=== PATIENT | female | born 2000 ===

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

== ENCOUNTER 2020-05-13 07:37 | Inpatient (IN) ==
[2020-05-13] MEDS ORDERED: valACYclovir 500 MG TABLET PO SCH (09:30)
[2020-05-13] MEDS ORDERED: BUTORPHANOL 2 MG/ML VIAL IV PRN (10:54)
[2020-05-13] MEDS ORDERED: ONDANSETRON 4 MG/2 ML VIAL IV PRN (10:54)
[2020-05-13] MEDS ORDERED: MEPERIDINE 50 MG/1 ML VIAL IV PRN (10:54)
[2020-05-13] MEDS ORDERED: OXYTOCIN/LR 20 UNIT/1,000 ML BAG IV SCH (11:00)
[2020-05-13 11:20] LABS: Basophils % 0.2 % (0.0-0.8); Eosinophils # 0.1 10*3/uL (0.0-0.87); Eosinophils % 1.1 % (0.00-10.9); Hematocrit 25.9 VOL% (35.7-47.0); Hemoglobin 7.7 GM/DL (12.0-16.0); Immature Granulocytes % 0.6 %; Immature Granulocytes Absolute 0.05 #; Lymphocytes # 2.4 10*3/uL (1.4-4.0); Lymphocytes % 28.8 % (21.3-54.2); Mean Corpuscular HGB Conc 29.7 GM/DL (32-36); Mean Corpuscular Volume 69.6 FL (87-102); Mean Platelet Volume 11.8 FL (9.6-12.0); Monocytes % 4.5 % (1.7-12.7); NRBC # 0.07 10*3/uL; Neutrophils % 64.8 % (38.7-73.9); Platelet Count 248 T/CUMM (130-400); Red Blood Count 3.72 MC/CUMM (3.8-5.5); Red Cell Distribution Width 16.3 % (9.3-17.3); White Blood Count 8.2 T/CUMM (4-12)
[2020-05-13] MEDS ORDERED: AMPICILLIN INJ 2,000 MG in SODIUM CHLORIDE 0.9% 100 ML IV ONE (11:20)
[2020-05-13] MEDS: LACTATED RINGERS 1,000 ML IV SCH ×2 (11:50→13:11)
[2020-05-13] MEDS ORDERED: ePHEDrine 50 MG/ML VIAL IV PRN (12:16)
[2020-05-13] MEDS ORDERED: hydrOXYzine HCL 25 MG/1 ML VIAL IM PRN (12:16)
[2020-05-13] MEDS ORDERED: PROMETHAZINE 25 MG/1 ML VIAL IM ONE (12:16)
[2020-05-13] MEDS ORDERED: diphenhydrAMINE 50 MG/1 ML VIAL IV PRN ×2 (12:16)
[2020-05-13] MEDS ORDERED: NALOXONE 0.4 MG/ML VIAL IV PRN (12:16)
[2020-05-13] MEDS ORDERED: ONDANSETRON 4 MG/2 ML VIAL IV ONE (12:16)
[2020-05-13] MEDS ORDERED: FAMOTIDINE 20 MG/2 ML VIAL IV ONE (12:18)
[2020-05-13] MEDS ORDERED: LACTATED RINGERS 1,000 ML IV ONE (12:18)
[2020-05-13] MEDS ORDERED: CITRIC ACID/SODIUM CITRATE 30 ML UDCUP PO ONE (12:18)
[2020-05-13] MEDS ORDERED: fentaNYL 2 MCG/ROPIV 0.2% EPID 100 ML EPIDURAL SCH (12:30)
[2020-05-13 15:02] LABS: Bilirubin,Urine Negative (Negative); Blood, Urine Negative (Negative); Glucose,Urine (UA) Negative (Negative); Ketones,Urine 5 mg/dL (Negative); Mucus,Urine Occasional /LPF (Occasional); Nitrite,Urine Negative (Negative); Protein,Urine Negative; RBC,Urine 2 /HPF (0-4); Squamous Epithelial Cell,Urine Occasional /HPF (0-10); Urine Appearance CLEAR (Clear); Urine Color Yellow (Yellow); Urine Specific Gravity 1.014 (1.001-1.035); Urine Urobilinogen < 2.0 EU/DL (0.2-1.0); WBC,Urine 1 /HPF (0-6)
[2020-05-13] MEDS ORDERED: AMPICILLIN INJ 1,000 MG in SODIUM CHLORIDE 0.9% 100 ML IV SCH (15:30)
[2020-05-13] MEDS ORDERED: TRANEXAMIC ACID 1,000 MG/10 ML VIAL ONE (16:44)
[2020-05-13] MEDS ORDERED: miSOPROStoL 200 MCG TABLET ONE (16:44)
[2020-05-13] MEDS ORDERED: OXYTOCIN/LR 0 UNIT/0 ML BAG IV ONE (16:44)
[2020-05-13] MEDS ORDERED: METHYLERGONOVINE 0.2 MG/1 ML AMP ONE (16:45)
[2020-05-13] MEDS ORDERED: CARBOPROST TROMETHAMINE 250 MCG/ML AMP IM ONE (16:45)
[2020-05-13 17:54] LABS: Cord Venous Blood HCO3 23.4 MMOL/L; Cord Venous Blood PCO2 38.8 MMHG; Cord Venous Blood PO2 29.6
[2020-05-13] MEDS ORDERED: IBUPROFEN 800 MG TABLET PO PRN (22:26)
[2020-05-13] MEDS ORDERED: BENZOCAINE 20%/MENTHOL 0.5% SPRAY 56 GM CAN TOP PRN (22:26)
[2020-05-13] MEDS ORDERED: WITCH HAZEL PADS 100/JAR TOP PRN (22:26)
[2020-05-13] MEDS ORDERED: OXYTOCIN/LR 20 UNIT/1,000 ML BAG IV ONE (22:26)
[2020-05-13] MEDS ORDERED: HYDROCORTISONE 2.5% RECTAL CREAM 30 GM TUBE TOP PRN (22:26)
[2020-05-13] MEDS ORDERED: BISACODYL 10 MG SUPP RECTAL PRN (22:26)
[2020-05-13] MEDS ORDERED: oxyCODONE/ACETAMINOPHEN 5-325 MG TABLET PO PRN ×2 (22:26)
[2020-05-13] MEDS ORDERED: DIPH/TET/ACEL PERT BOOSTER VACCINE 0.5 ML VIAL IM ONE (22:26)
[2020-05-13] MEDS ORDERED: RHO(D) IMMUNE GLOBULIN 300 MCG SYRINGE IM ONE (22:26)
[2020-05-13] MEDS ORDERED: MEASLES/MUMPS/RUBELLA VACCINE 0.5 ML VIAL SUBCUT ONE (22:26)
[2020-05-13] MEDS ORDERED: ACETAMINOPHEN 325 MG TABLET PO PRN (22:26)
[2020-05-13] MEDS ORDERED: LANOLIN 50% CREAM 0.3 OZ TUBE TOP PRN (22:26)
[2020-05-13] MEDS ORDERED: ACETAMINOPHEN/CODEINE 300-30 MG TABLET PO PRN (22:27)
[2020-05-13] MEDS: ACETAMINOPHEN/CODEINE 300-30 MG TABLET PO PRN (22:37)
[2020-05-13] MEDS: DOCUSATE SODIUM 100 MG CAPSULE PO SCH (22:38)
[2020-05-14] MEDS: ACETAMINOPHEN/CODEINE 300-30 MG TABLET PO PRN ×3 (05:25→23:31)
[2020-05-14 07:15] LABS: Basophils % 0.2 % (0.0-0.8); Eosinophils # 0.2 10*3/uL (0.0-0.87); Eosinophils % 1.2 % (0.00-10.9); Hematocrit 21.6 VOL% (35.7-47.0); Hemoglobin 6.6 GM/DL (12.0-16.0); Immature Granulocytes % 0.6 %; Immature Granulocytes Absolute 0.07 #; Lymphocytes # 3.3 10*3/uL (1.4-4.0); Mean Corpuscular HGB Conc 30.6 GM/DL (32-36); Mean Corpuscular Volume 68.1 FL (87-102); Mean Platelet Volume 10.9 FL (9.6-12.0); Monocytes % 5.4 % (1.7-12.7); NRBC # 0.05 10*3/uL; Neutrophils % 66.6 % (38.7-73.9); Platelet Count 195 T/CUMM (130-400); Red Blood Count 3.17 MC/CUMM (3.8-5.5); Red Cell Distribution Width 16.1 % (9.3-17.3); White Blood Count 12.7 T/CUMM (4-12)
[2020-05-14] MEDS ORDERED: SODIUM CHLORIDE 0.9% 1,000 ML IV PRN (07:23)
[2020-05-14] MEDS: DOCUSATE SODIUM 100 MG CAPSULE PO SCH ×2 (08:33→20:50)
[2020-05-14] MEDS: FERROUS SULFATE 325 MG TABLET PO SCH ×3 (08:33→20:50)
[2020-05-14] MEDS: valACYclovir 500 MG TABLET PO SCH (08:34)
[2020-05-14] MEDS ORDERED: FERROUS SULFATE 325 MG TABLET PO SCH (09:00)
[2020-05-14 16:05] LABS: Hematocrit 31.2 VOL% (35.7-47.0); Hemoglobin 9.7 GM/DL (12.0-16.0)
[2020-05-15] MEDS ORDERED: DIPH/TET/ACEL PERT BOOSTER VACCINE 0.5 ML VIAL IM ONE (08:59)
[2020-05-15] MEDS ORDERED: INFLUENZA VIRUS VACCINE 0.5 ML SYRINGE IM ONE (08:59)
[2020-05-15] MEDS: DOCUSATE SODIUM 100 MG CAPSULE PO SCH (09:45)
[2020-05-15] MEDS: valACYclovir 500 MG TABLET PO SCH (09:45)
[2020-05-15] MEDS: FERROUS SULFATE 325 MG TABLET PO SCH (09:45)
[2020-05-15 10:02] VITALS: BP 113/84
== END 2020-05-15 14:05 | disposition home or self-care (01) | DRG 807 ==
LOC: N.LDOUT 07:37 → N.LD 07:40 → N.OB 22:14
PROVIDERS: ADMIT Obstetrics & Gynecology; ATTEND Obstetrics & Gynecology

== ENCOUNTER 2022-03-16 00:44 | Inpatient (IN) ==
[2022-03-16] MEDS ORDERED: MEPERIDINE 50 MG/1 ML VIAL IV PRN (00:51)
[2022-03-16] MEDS ORDERED: miSOPROStoL 200 MCG TABLET RECTAL PRN (00:51)
[2022-03-16] MEDS ORDERED: BUTORPHANOL 2 MG/ML VIAL IV PRN (00:51)
[2022-03-16] MEDS ORDERED: OXYTOCIN/LR 20 UNIT/1,000 ML BAG IV ONE ×3 (00:51→04:41)
[2022-03-16] MEDS ORDERED: ONDANSETRON 4 MG/2 ML VIAL IV PRN ×2 (00:51→04:41)
[2022-03-16] MEDS ORDERED: CARBOPROST TROMETHAMINE 250 MCG/ML AMP IM PRN (00:51)
[2022-03-16] MEDS ORDERED: METHYLERGONOVINE 0.2 MG/1 ML AMP IM PRN (00:51)
[2022-03-16] MEDS ORDERED: TRANEXAMIC ACID 1,000 MG in SODIUM CHLORIDE 0.9% 100 ML IV PRN (00:51)
[2022-03-16] MEDS ORDERED: LACTATED RINGERS 1,000 ML IV SCH ×3 (01:00→02:00)
[2022-03-16 01:18] LABS: Basophils % 0.2 % (0.0-0.8); Eosinophils # 0.1 10*3/uL (0.0-0.87); Eosinophils % 1.6 % (0.00-10.9); Hematocrit 28.3 VOL% (35.7-47.0); Hemoglobin 8.4 GM/DL (12.0-16.0); Immature Granulocytes % 0.2 %; Immature Granulocytes Absolute 0.02 #; Lymphocytes # 3.1 10*3/uL (1.4-4.0); Lymphocytes % 35.5 % (21.3-54.2); Mean Corpuscular HGB Conc 29.7 GM/DL (32-36); Mean Platelet Volume 11.4 FL (9.6-12.0); Monocytes # 0.4 10*3/uL (0.11-0.8); NRBC # 0.07 10*3/uL; Neutrophils % 58.5 % (38.7-73.9); Platelet Count 223 T/CUMM (130-400); Red Blood Count 4.04 MC/CUMM (3.8-5.5); Red Cell Distribution Width 18.1 % (9.3-17.3); White Blood Count 8.8 T/CUMM (4-12)
[2022-03-16] MEDS ORDERED: CITRIC ACID/SODIUM CITRATE 30 ML UDCUP PO ONE (01:27)
[2022-03-16] MEDS ORDERED: diphenhydrAMINE 50 MG/1 ML VIAL IV PRN ×2 (01:27)
[2022-03-16] MEDS ORDERED: LACTATED RINGERS 250 ML IV PRN (01:27)
[2022-03-16] MEDS ORDERED: NALOXONE 0.4 MG/ML VIAL IV PRN (01:27)
[2022-03-16] MEDS ORDERED: hydrOXYzine HCL 25 MG/1 ML VIAL IM PRN (01:27)
[2022-03-16] MEDS ORDERED: LACTATED RINGERS 500 ML IV ONE (01:27)
[2022-03-16] MEDS ORDERED: LACTATED RINGERS 1,000 ML IV ONE (01:27)
[2022-03-16] MEDS ORDERED: ePHEDrine 50 MG/ML VIAL IV PRN (01:27)
[2022-03-16] MEDS ORDERED: FAMOTIDINE 20 MG/2 ML VIAL IV ONE (01:27)
[2022-03-16] MEDS ORDERED: fentaNYL 2 MCG/ROPIV 0.2% EPID 100 ML EPIDURAL SCH (01:30)
[2022-03-16] MEDS ORDERED: PROMETHAZINE 25 MG/1 ML VIAL IM ONE (02:00)
[2022-03-16] MEDS ORDERED: ONDANSETRON 4 MG/2 ML VIAL IV ONE (02:00)
[2022-03-16] MEDS ORDERED: AMPICILLIN INJ 2,000 MG in SODIUM CHLORIDE 0.9% 100 ML IV ONE (03:00)
[2022-03-16 03:23] LABS: Bilirubin,Urine Negative (Negative); Blood, Urine Negative (Negative); Glucose,Urine (UA) Negative (Negative); Ketones,Urine Negative (Negative); Nitrite,Urine Negative (Negative); Protein,Urine Negative (Negative); Urine Appearance Clear (Clear); Urine Color Yellow (Yellow); Urine Specific Gravity 1.025 (1.001-1.035); Urine Urobilinogen 0.2 eU/dL (<2.0); Urine pH 6.5 (4.5-8.0)
[2022-03-16 03:25] LABS: Mucus,Urine Occasional /LPF (Occasional); RBC,Urine 1 /HPF (0-4); Squamous Epithelial Cell,Urine Occasional /HPF (0-10)
[2022-03-16] MEDS ORDERED: SODIUM CHLORIDE 0.9% 0 ML IV ONE (03:57)
[2022-03-16] MEDS ORDERED: METHYLERGONOVINE 0.2 MG/1 ML AMP ONE (03:57)
[2022-03-16] MEDS ORDERED: TRANEXAMIC ACID 1,000 MG/10 ML VIAL ONE (03:57)
[2022-03-16] MEDS ORDERED: miSOPROStoL 200 MCG TABLET ONE (03:57)
[2022-03-16] MEDS ORDERED: CARBOPROST TROMETHAMINE 250 MCG/ML AMP IM ONE (03:58)
[2022-03-16] MEDS ORDERED: OXYTOCIN/LR 30 UNIT/1,000 ML BAG IV STA (04:38)
[2022-03-16] MEDS ORDERED: IBUPROFEN 800 MG TABLET PO PRN (04:41)
[2022-03-16] MEDS ORDERED: ACETAMINOPHEN 325 MG TABLET PO PRN (04:41)
[2022-03-16] MEDS ORDERED: HYDROCORTISONE 2.5% RECTAL CREAM 30 GM TUBE TOP PRN (04:41)
[2022-03-16] MEDS ORDERED: oxyCODONE/ACETAMINOPHEN 5-325 MG TABLET PO PRN (04:41)
[2022-03-16] MEDS ORDERED: LANOLIN 50% CREAM 0.3 OZ TUBE TOP PRN (04:41)
[2022-03-16] MEDS ORDERED: BENZOCAINE 20%/MENTHOL 0.5% SPRAY 56 GM CAN TOP PRN (04:41)
[2022-03-16] MEDS ORDERED: WITCH HAZEL PADS 100/JAR TOP PRN (04:41)
[2022-03-16] MEDS ORDERED: BISACODYL 10 MG SUPP RECTAL PRN (04:41)
[2022-03-16 04:50] LABS: Cord Venous Blood PCO2 42.5 MMHG; Cord Venous Blood PO2 32.6
[2022-03-16] MEDS ORDERED: DIPH/TET/ACEL PERT BOOSTER VACCINE 0.5 ML VIAL IM ONE (05:00)
[2022-03-16] MEDS ORDERED: RHO(D) IMMUNE GLOBULIN 300 MCG SYRINGE IM ONE (05:00)
[2022-03-16] MEDS ORDERED: MEASLES/MUMPS/RUBELLA VACCINE 0.5 ML VIAL SUBCUT ONE (05:00)
[2022-03-16] MEDS ORDERED: AMPICILLIN INJ 1,000 MG in SODIUM CHLORIDE 0.9% 100 ML IV SCH (07:00)
[2022-03-16] MEDS: oxyCODONE/ACETAMINOPHEN 5-325 MG TABLET PO PRN ×2 (08:42→18:30)
[2022-03-16] MEDS: DOCUSATE SODIUM 100 MG CAPSULE PO SCH ×2 (09:01→20:33)
[2022-03-17 06:05] LABS: Basophils % 0.3 % (0.0-0.8); Eosinophils # 0.3 10*3/uL (0.0-0.87); Eosinophils % 2.8 % (0.00-10.9); Hematocrit 22.6 VOL% (35.7-47.0); Hemoglobin 6.8 GM/DL (12.0-16.0); Immature Granulocytes % 0.6 %; Immature Granulocytes Absolute 0.06 #; Lymphocytes # 4.1 10*3/uL (1.4-4.0); Lymphocytes % 39.2 % (21.3-54.2); Mean Corpuscular HGB Conc 30.1 GM/DL (32-36); Mean Corpuscular Volume 69.3 FL (87-102); Mean Platelet Volume 12.2 FL (9.6-12.0); Monocytes # 0.4 10*3/uL (0.11-0.8); Monocytes % 3.9 % (1.7-12.7); NRBC # 0.02 10*3/uL; Neutrophils % 53.2 % (38.7-73.9); Platelet Count 194 T/CUMM (130-400); Red Blood Count 3.26 MC/CUMM (3.8-5.5); Red Cell Distribution Width 17.7 % (9.3-17.3); White Blood Count 10.5 T/CUMM (4-12)
[2022-03-17] MEDS ORDERED: SODIUM CHLORIDE 0.9% 1,000 ML IV PRN ×2 (06:50→06:59)
[2022-03-17 07:15] LABS: Anisocytosis 1+; Platelet Estimate Normal
[2022-03-17 07:16] LABS: Tear Drop Cells Few
[2022-03-17] MEDS: DOCUSATE SODIUM 100 MG CAPSULE PO SCH ×2 (09:15→21:30)
[2022-03-17 19:40] LABS: Basophils % 0.2 % (0.0-0.8); Eosinophils # 0.3 10*3/uL (0.0-0.87); Eosinophils % 3.1 % (0.00-10.9); Hematocrit 32.3 VOL% (35.7-47.0); Immature Granulocytes % 0.8 %; Immature Granulocytes Absolute 0.08 #; Lymphocytes # 3.3 10*3/uL (1.4-4.0); Lymphocytes % 31.4 % (21.3-54.2); Mean Corpuscular Volume 73.2 FL (87-102); Mean Platelet Volume 11.4 FL (9.6-12.0); Monocytes # 0.5 10*3/uL (0.11-0.8); Monocytes % 4.4 % (1.7-12.7); NRBC # 0.02 10*3/uL; Neutrophils % 60.1 % (38.7-73.9); Platelet Count 207 T/CUMM (130-400); Red Blood Count 4.41 MC/CUMM (3.8-5.5); Red Cell Distribution Width 21.3 % (9.3-17.3); White Blood Count 10.4 T/CUMM (4-12)
[2022-03-17] MEDS ORDERED: ACETAMINOPHEN 325 MG TABLET PO PRN (21:34)
[2022-03-18] MEDS ORDERED: FERROUS SULFATE 325 MG TABLET PO SCH (09:00)
[2022-03-18] MEDS: DOCUSATE SODIUM 100 MG CAPSULE PO SCH (09:33)
[2022-03-18 10:02] VITALS: BP 115/61
== END 2022-03-18 14:00 | disposition home or self-care (01) | DRG 560 ==
LOC: N.LD 00:44 → N.OB 07:57
PROVIDERS: ADMIT Obstetrics & Gynecology; ATTEND Obstetrics & Gynecology